=== PATIENT | male | born 1970 | race Caucasian/White ===

== ENCOUNTER 2025-02-02 19:16 | Emergency (ER) | payer OTHER, SELFPAY ==
[2025-02-02 19:21] VITALS: BP 130/81
[2025-02-02 23:50] VITALS: BMI 22.9
--- NOTE | 2025-02-02 23:53 | ED.GENMED ---
History of Present Illness
General
Chief Complaint: Musculo-Skeletal Complaint
Source: patient
Exam Limitations: none
Time Seen by Provider: 02/02/25 23:53
Nursing documentation reviewed up to this point in time: agreed with
History of Present Illness
History of Present Illness:
Note:
CHIEF COMPLAINT(S)
Left knee pain and swelling.
HISTORY OF PRESENT ILLNESS
The patient is a 54-year-old male who presents with right knee pain and swelling, which started last Monday. He reports that he has been experiencing increasing discomfort and swelling that has worsened over the past week. The patient notes that
bending the knee is particularly painful and mentions a 'big bubble' at the back of the knee that radiates pain up his leg. 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 Despite having
arthritis, previous imaging reportedly did not show any arthritic changes. The patient has been taking Meloxicam, an anti-inflammatory medication, which provides some relief, but the pain and swelling return by the afternoon. He reports the knee
swelling increases after using a knee immobilizer, causing more discomfort. The patient was previously seen at two other hospitals, where unsuccessful attempts were made to aspirate the knee, and no fluid was obtained. Ultrasound imaging at another
facility showed no visible fluid, and the patient reports being told he might have a mild form of Lyme disease. He denies fevers and is concerned about infection risks from repeated needle insertions. Elevating the knee provides temporary relief,
but the pain returns after prolonged periods.
MEDICATIONS
Meloxicam
REVIEW OF SYSTEMS
- Musculoskeletal: Reports left knee pain and swelling, especially when bending.
- General: Denies fever.
- Others: No recent tick bites recalled.
PHYSICAL EXAM
General: Alert, no apparent distress but expresses frustration.
Musculoskeletal: No effusion noted in the left knee. Limited range of motion due to pain, particularly on bending.
PROBLEM LIST
Acute:
- Right knee pain and effusion.
Chronic:
- Possible mild Lyme disease (as per patient report).
- Arthritis (previously diagnosed).
PLAN
- Blood tests to rule out infection and test for Lyme disease.
- Consider transitioning from Meloxicam to a course of Prednisone for stronger anti-inflammatory effects.
- Advise rest and elevation of the affected knee.
- Referral to an orthopedist for potential steroid injection directly into the knee if no improvement is noted.
- Follow-up based on blood work results and response to treatment.
DIFFERENTIAL DIAGNOSIS
The Differential Diagnosis includes, in no particular order and is not limited to:
1. Infectious arthritis
2. Lyme disease
3. Knee arthritis exacerbation
4. Gout
5. Pseudogout
6. Knee bursitis
7. Ligamentous injury to the knee
8. Patellar tendonitis
9. Synovitis
10. Traumatic knee effusion
Disposition:
SUMMARY OF ENCOUNTER
The patient is a 54-year-old male who presented to the emergency department with concerns of severe knee pain and swelling. The symptoms began without any known trauma, although the patient works in construction, involving frequent manual labor,
standing, kneeling, and lifting heavy equipment. The patient was previously seen in a different emergency room one week ago and was started on Meloxicam, which improved the swelling but increased the pain. He expressed concern about infection due to
unsuccessful attempts at arthrocentesis in previous evaluations and requested blood work, including a white blood cell count and a Lyme disease test. On physical examination, the patient appeared well with no distress. An overuse musculoskeletal
injury or knee contusion was suspected, with a low suspicion for septic arthritis as the right knee was non-tender, showed no erythema, and had a full range of motion. The patient was able to bear weight without difficulty.
DISPOSITION
Stable for discharge.
ASSESSMENT
Low suspicion for septic arthritis with possible overuse musculoskeletal injury or knee contusion.
PLAN
The patient will be switched from Meloxicam to Prednisone and provided follow-up information for orthopedics.
INDEPENDENT REVIEW OF LABS AND INTERPRETATION OF TESTS
My independent review of CBC reveals leukocytosis, likely reactive, with no suspicion for infection. BMP is unremarkable. Lyme disease test sent off. My independent interpretation of the x-ray shows acute abnormalities with no evidence of effusion.
FOLLOW-UP INSTRUCTIONS
Follow-up with orthopedics for further evaluation and management.
MEDICATION RECONCILIATION
Patient switched from Meloxicam to Prednisone.
MEDICAL DECISION MAKING
- Complexity of Data Reviewed: Chronic conditions affecting care. Differential diagnosis considered includes infectious arthritis, Lyme disease, knee arthritis exacerbation, gout, pseudogout, knee bursitis, ligamentous injury to the knee, patellar
tendonitis, synovitis, and traumatic knee effusion.
- Data:
Category 1:
- Lab tests reviewed include CBC and BMP. Lyme disease test ordered.
- Category 3:
- Discussion of management with the patient regarding moving from Meloxicam to Prednisone and providing follow-up information for ortho.
-Risk:
Consideration of Admission/Observation: Escalation of care including admission/observation was considered given the complexity and risk of the patients presenting complaint, exam findings, and/or their underlying comorbidities. However, ultimately I
feel the patient is safe for outpatient management with close follow-up. Reasoning: Work-up reassuring, does not reveal any acute life/organ-threatening processes, patients symptoms well-controlled upon reevaluation, reexamination is reassuring,
vitals are stable, patient agreeable with discharge, reliable for follow-up.
DIAGNOSIS
Overuse musculoskeletal injury (ICD-10: M79.18)
Leukocytosis (likely reactive) (ICD-10: D72.829)
UPDATE
12:00 am-- I was called to see patient, patient was taken to x-ray half way through my evaluation
12:10 am-- I returned to see patient and he was missing from the room. I was notified by nursing staff that patient left to take a smoke break
12: 16 am-- Patient returned to room
Past History
Past History
ED Past Medical History: HTN
ED Past Surgical History: Appendectomy
Patient has exhibited threatening behavior?: No
Social History
Tobacco: Smoker
Alcohol: None
Drug: None
Living: with family
Employment: Employed
Review of Systems
Review of Systems
All Other Systems: ROS reviewed and negative except as documented in HPI and ROS
Phy Exam
Physical Exam
Physical Exam:
see hpi
Course
Orders/Labs/Results
Orders:
Orders
02/02/25 23:51
CR Knee- Right 4 Or More View* Urgent
Comment:
Reason For Exam: swelling, pain
02/02/25 23:58
Complete Blood Count/With Diff Urgent
Lyme Progressive Urgent
02/02/25 23:59
Comprehensive Metabolic Panel Urgent
Abnormal Lab Results
02/03/25
00:14
WBC 14.0 H 10^3/uL
(4.8-10.8)
MCV 94.1 H fL
(80.0-94.0)
MCH 31.3 H pg
(27.0-31.0)
MPV 10.7 H fL
(7.4-10.4)
Abs Immat Gran (auto) 0.2 H 10^3/uL
(0-0.05)
Absolute Neuts (auto) 8.1 H 10^3/uL
(1.4-6.5)
Absolute Lymphs (auto) 3.8 H 10^3/uL
(1.2-3.4)
Absolute Monos (auto) 1.1 H 10^3/uL
(0.1-0.6)
Immature Gran % 1.5 H %
(0-0.5)
Glucose 103 H mg/dl
(70-99)
02/03/25 00:14
02/03/25 00:14
Vital Signs
Initial and Last Documented VS:
Initial Vital Signs
Temp Pulse Resp BP Pulse Ox
98.0 F 90 16 130/81 97
02/02/25 19:21 02/02/25 19:21 02/02/25 19:21 02/02/25 19:21 02/02/25 19:21
Last Documented Vital Signs
Temp Pulse Resp BP Pulse Ox
98.1 F 75 18 146/95 98
02/02/25 23:50 02/03/25 00:02 02/03/25 00:02 02/03/25 00:02 02/03/25 00:02
*Pulse Oximetry
SaO2: 97
Oxygen Mode of Delivery: Room air
Patient hypoxic: no
*Critical Care Note
Total Time (30-74mins, 75-104mins- exclusive of procedures): Not Applicable
ED Attending Note
-
Portions of this chart may have been created with voice recognition software.� Occasional wrong word or��sound alike� substitutions may have occurred due to the inherent limitations of voice recognition software.
Discharge Plan
Departure
Patient Disposition: Home (Routine Discharge)
Date of Disposition: 02/03/25
Time of Disposition: 01:52
Patient with high blood pressure during this ER visit?: Yes
Condition: Good
Discharge Problem:
Pain in right knee
Instructions: Knee Pain (DC), BLOOD PRESSURE
Prescriptions:
New
prednisone 20 mg tablet
40 mg PO DAILY 5 Days Qty: 10 0RF
No Action
metoprolol succinate 50 MG tablet extended release 24 hr
50 mg PO DAILY Qty: 30 0RF
amlodipine 5 MG tablet
5 mg PO DAILY Qty: 90 3RF
azithromycin 250 MG tablet
250 mg PO Daily Qty: 6 0RF
Rx Instructions:
500mg PO day 1 followed by 250mg days 2-5
amoxicillin-pot clavulanate 1 TABLET tablet
1 tab PO Q12 Qty: 14 0RF
Referrals:
Isaiah Gooden MD [Active, Orthopedics] - Call in 1-3 days for appt
Laura Galloway CRNP [Family Provider, General]
Activity Restrictions/Additional Instructions:
Please stop taking meloxicam. Please start taking prednisone. Please take 40 mg once daily for 5 days. Please call attached number to see orthopedics in follow-up. Please keep your leg elevated at home. Please try with a knee immobilizer.
Please take breaks while at work.
PLEASE RETURN TO ER SHOULD YOU DEVELOP INCREASING PAIN, CHEST PAIN, SHORTNESS OF BREATH, SWELLING, INABILITY TO AMBULATE, FEVERS OR CHILLS, REDNESS AROUND THE KNEE, OR ANY OTHER SIGNS OR SYMPTOMS WORRISOME TO YOU.
Interventions
Interventions:
*Risk Screen - Suicide Last Done: 02/02/25 23:47
*General Assessment Last Done: 02/02/25 23:47
*Neglect/Abuse Screening Last Done: 02/02/25 23:47
*ED- Fall Risk Assessment Last Done: 02/02/25 23:47
*ED COVID-19 Vaccine History Last Done: 02/02/25 23:47
*Nursing Disposition Last Done: 02/03/25 01:58
ED-Musculoskeletal Assessment Last Done: 02/02/25 23:47
Discharge Date and Time
Discharge Date/Time: 02/03/25 02:04
Print Language: SWEDISH
--- NOTE | 2025-02-02 23:59 | EDRN ---
Pt states on Monday his R knee started bothering him, walking with a limp. Pt denies any obvious injury.
Pt went to [place] on 01/30 and had xray and u/s done and was told he had a joint effusion. Pt reports they tried to drain his knee 7 times without success. Was given Mobic, knee immobilizer and followup with ortho. Pt states knee immobilizer did
not feel good, made it worse. Pt went back to [place] yesterday and left after waiting 4 hours d/t long wait time.
Pt arrives here today requesting blood work to see if his knee is infected and also requesting to be tested for lymes disease bc his joints hurt.
[2025-02-03 00:02] VITALS: BP 146/95
[2025-02-03 00:34] LABS: Hematocrit 46.3 % (39.0-52.0); Hemoglobin 15.4 g/dL (13.0-18.0); Mean Corp Hgb Conc. 33.3 g/dL (33.0-37.0); Mean Corpuscular Volume 94.1 fL (80.0-94.0); Nucleated Red Blood Cells % 0 % (-); Platelet Count 283 10^3/uL (130-400); Red Cell Dist. Width 12.4 % (11.5-14.5)
[2025-02-03 00:47] LABS: ALT (SGPT) 50 U/L (0-50); AST (SGOT) 33 U/L (17-59); Albumin 4.6 g/dl (3.5-5.0); Alkaline Phosphatase 89 U/L (38-126); Blood Urea Nitrogen 17 mg/dl (9-20); Calcium 9.9 mg/dl (8.4-10.2); Carbon Dioxide 26 mmol/L (22-30); Chloride 106 mmol/L (98-107); Estimated Creatinine Clearance 99 ml/min; Glucose 103 mg/dl (70-99); Potassium 4.9 mmol/L (3.5-5.1); Sodium 141 mmol/L (135-145); Total Protein 7.5 g/dl (6.3-8.2); eGFR > 60.00
[2025-02-04 13:53] LABS: Lyme Antibody Screen, EIA Negative (Negative)
== END 2025-02-03 02:04 | disposition home or self-care (01) ==
LOC: EMR 19:16
PROVIDERS: Physician Assistant; EMERGENCY PHYSICIAN Student in an Organized Health Care Education/Training Program; FAMILY PHYSICIAN Nurse Practitioner
DX: M25.561 Pain in right knee (principal); D72.829 Elevated white blood cell count, unspecified; I10 Essential (primary) hypertension; F17.200 Nicotine dependence, unspecified, uncomplicated
CPT/HCPCS: 99284; 73564; 80053; 85025; 86618

== ENCOUNTER 2025-03-17 15:42 | Emergency (ER) | payer OTHER, SELFPAY ==
[2025-03-17 15:43] VITALS: BP 149/94
--- NOTE | 2025-03-17 16:12 | ED.GENMED ---
History of Present Illness
General
Chief Complaint: Skin Surface Trauma
Time Seen by Provider: 03/17/25 15:57
History of Present Illness
History of Present Illness:
FOCUSED PAST MEDICAL HISTORY
- Had TBI, high blood pressure
REVIEW OF OLD RECORDS
- I reviewed records, the patient was seen here with knee pain in January 2025
Note:
CHIEF COMPLAINT(S)
Laceration on the distal aspect of the right forearm with significant bleeding.
HISTORY OF PRESENT ILLNESS
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 The patient reports that there
was a significant amount of bleeding described as 'spurting out'. He denies being on any antiplatelet or anticoagulation therapy and does not have a history of diabetes. The patient mentioned that his last tetanus immunization was approximately five
years ago. He reports no other symptoms or concerns at this time.
REVIEW OF SYSTEMS
- Skin: Laceration present on the distal right forearm
- Hematologic: No use of anticoagulation or antiplatelet therapy
PHYSICAL EXAM
General: Alert, no acute distress.
Head: Normocephalic, atraumatic.
Neck: Supple, trachea midline.
Eye Ears, nose, mouth and throat: Oral mucosa moist.
Cardiovascular: Normal peripheral perfusion, No edema.
Respiratory: Respirations are non-labored.
Gastrointestinal: Abdomen nondistended.
Back: Normal range of motion, Normal alignment.
Musculoskeletal: The patient has a 2.5 cm laceration to the distal aspect of the right forearm with no ongoing bleeding, no evidence for arterial injury, distal function is normal
Neurological: Alert and oriented to person, place, time, and situation, No focal neurological deficit observed.
Psychiatric: Cooperative, appropriate mood & affect.
PLAN
- Clean and irrigate the wound thoroughly to prevent infection.
- Administer a tetanus booster shot, as the last dose was approximately five years ago.
- Consider closing the wound with stitches or surgical glue, depending on its severity and depth.
- Monitor the patient for any signs of infection or continued bleeding, and provide appropriate aftercare instructions.
- Follow-up appointment to assess wound healing.
DIFFERENTIAL DIAGNOSIS
The Differential Diagnosis includes, in no particular order and is not limited to:
- Arterial laceration
- Venous laceration
- Foreign body in the wound
- Tendon injury
- Nerve injury
- Soft tissue infection
- Hematoma
- Contusion
- Skin abrasion
- Dermal laceration
SUMMARY OF ENCOUNTER
The patient, a 55-year-old male with no significant medical history involving anticoagulation or diabetes, presented to the emergency department with a laceration on the distal aspect of his right forearm sustained at a construction site. The injury
was characterized by significant bleeding, suggestive of possible arterial involvement. In the emergency department, the wound was cleaned and irrigated, and two 4-0 Prolene sutures were placed to close the laceration. The patients tetanus status
was confirmed to be up to date, with his last immunization administered approximately five years ago. The management was undertaken to prevent infection, control bleeding, and facilitate healing.
DISPOSITION
Discharge
PLAN
- Advise the patient on appropriate wound care, including keeping the wound clean and dry.
- Monitor for any signs of infection, such as increased redness, swelling, or discharge.
- Recommend removing stitches in approximately seven days.
- Provide instructions on signs that would require immediate medical attention, such as excessive bleeding or signs of infection.
PROCEDURES
- Wound cleaning and irrigation.
- Placement of two 4-0 Prolene sutures on the laceration of the right forearm.
FOLLOW-UP INSTRUCTIONS
The patient should schedule a follow-up visit with his primary care provider in approximately seven days for suture removal.
MEDICATION RECONCILIATION
No new medication was administered or prescribed during the visit.
MEDICAL DECISION MAKING
- Number and Complexity of Problems Addressed:
The differential diagnosis includes arterial laceration, venous laceration, and possible soft tissue infection.
- Data:
Category 1
Review of the patients current immunization status confirmed tetanus immunization approximately five years ago.
-Risk:
Consideration of Admission/Observation: Escalation of care including admission/observation was considered given the complexity and risk of the patients presenting complaint, exam findings, and/or their underlying comorbidities. However, ultimately,
I feel the patient is safe for outpatient management with close follow-up. Reasoning: Work-up reassuring, does not reveal any acute life/organ-threatening processes, patients symptoms well controlled upon reevaluation, reexamination is reassuring,
vitals are stable, patient agreeable with discharge, reliable for follow-up.
DIAGNOSIS
- Laceration of forearm, right (S51.749J).
Past History
Past History
ED Past Medical History: HTN
ED Past Surgical History: Appendectomy
Patient has exhibited threatening behavior?: No
Social History
Tobacco: Smoker
Alcohol: None
Drug: None
Living: with family
Employment: Employed
Phy Exam
Physical Exam
Physical Exam:
See HPI
Course
Vital Signs
Initial and Last Documented VS:
Initial Vital Signs
Temp Pulse Resp BP Pulse Ox
36.8 C 85 18 149/94 97
03/17/25 15:43 03/17/25 15:43 03/17/25 15:43 03/17/25 15:43 03/17/25 15:43
Last Documented Vital Signs
Temp Pulse Resp BP Pulse Ox
36.8 C 85 18 149/94 97
03/17/25 15:43 03/17/25 15:43 03/17/25 15:43 03/17/25 15:43 03/17/25 16:12
Procedures
Laceration Closure
Right Distal Arm:
Status of Wound: clean
Description of Wound Edges: sharp
Preparation: cleaned with saline
Anesthesia: 1% Lidocaine with epi
Revision/Debridement: routine- no revision
Wound exploration: explored to base- no FB
Type of Closure: single layer closure
Skin Closure Material: 4-0 prolene
Number of sutures: 2
*Pulse Oximetry
SaO2: 97
Oxygen Mode of Delivery: Room air
Patient hypoxic: no
*Critical Care Note
Total Time (30-74mins, 75-104mins- exclusive of procedures): Not Applicable
ED Attending Note
-
Portions of this chart may have been created with voice recognition software.� Occasional wrong word or��sound alike� substitutions may have occurred due to the inherent limitations of voice recognition software.
Discharge Plan
Departure
Patient Disposition: Home (Routine Discharge)
Date of Disposition: 03/17/25
Time of Disposition: 16:50
Patient with high blood pressure during this ER visit?: Yes
Discharge Problem:
Laceration
Instructions: Laceration Repair With Stitches (DC), BLOOD PRESSURE
Prescriptions:
No Action
metoprolol succinate 50 MG tablet extended release 24 hr
50 mg PO DAILY Qty: 30 0RF
amlodipine 5 MG tablet
5 mg PO DAILY Qty: 90 3RF
azithromycin 250 MG tablet
250 mg PO Daily Qty: 6 0RF
Rx Instructions:
500mg PO day 1 followed by 250mg days 2-5
amoxicillin-pot clavulanate 1 TABLET tablet
1 tab PO Q12 Qty: 14 0RF
prednisone 20 mg tablet
40 mg PO DAILY 5 Days Qty: 10 0RF
Referrals:
Laura Glaloway CRNP [Family Provider, General]
Activity Restrictions/Additional Instructions:
Have stitches removed by your doctor in approximately 7 days. Return here if worse or other concerns.
Interventions
Interventions:
*Risk Screen - Suicide Last Done: 03/17/25 15:43
*General Assessment Last Done: 03/17/25 15:43
*Nursing Disposition Last Done: 03/17/25 16:54
Discharge Date and Time
Print Language: CHINESE
== END 2025-03-17 16:54 | disposition home or self-care (01) ==
LOC: EMR 15:42
PROVIDERS: EMERGENCY PHYSICIAN Emergency Medicine; FAMILY PHYSICIAN Nurse Practitioner
DX: S51.811A Laceration without foreign body of right forearm, initial encounter (principal); W45.8XXA Other foreign body or object entering through skin, initial encounter; Y99.0 Civilian activity done for income or pay; I10 Essential (primary) hypertension; F17.200 Nicotine dependence, unspecified, uncomplicated; Z87.820 Personal history of traumatic brain injury
CPT/HCPCS: 99282; 12001